=== PATIENT | female | born 1990 | race Caucasian/White ===

== ENCOUNTER 2018-11-07 15:42 | Emergency (ER) | payer MEDICAID ==
[~2018-11-07] VITALS: Ht 165.1 cm; Wt 72.7 kg
[2018-11-07 16:02] VITALS: Ht 165.1 cm; Wt 72.7 kg
[2018-11-07] MEDS ORDERED: AMOXICILLIN500 M1 PO (19:48)
[2018-11-07 20:33] VITALS: BP 136/88
== END 2018-11-07 20:33 | disposition home or self-care (01) ==
LOC: D.ER 15:42
DX: J02.9 Acute pharyngitis, unspecified (principal)

== ENCOUNTER 2019-03-28 06:50 | Day surgery (SDC) | payer MEDICAID ==
[2019-03-26 15:41] LABS: BASOPHILS 0.2 % (0-2); EOSINOPHILS 1.6 % (0-7); HEMATOCRIT 39.6 % (36.0-48.0); HEMOGLOBIN 13.4 g/dL (12-16); IMMATURE GRANULOCYTES 0.1 % (0-5); LYMPHOCYTES 28.7 % (15-50); MCH 31.7 pg (26.0-34.0); MCHC 33.8 g/dL (31.0-37.0); MCV 93.6 fL (80.0-100.0); MEAN PLATELET VOLUME 9.4 fL (7.4-10.4); MONOCYTES 10.4 % (2-11); PLATELET COUNT 281 10x3/uL (130-400); RBC 4.23 10x6/uL (4.00-5.40); RDW 11.9 % (11.5-14.5); WBC 8.4 10x3/uL (4.8-10.8)
[~2019-03-28] VITALS: Ht 165.1 cm; Wt 83.0 kg
--- NOTE | ~2019-03-28 | OP ---
PATIENT NAME: SAWYER CALDERON MEDICAL RECORD: [id number] :88 LOCATION:D.OPS ADMISSION DATE: SURGEON: GARRISON TOMPKINS DO DATE OF OPERATION: 03/28/2019 PREOPERATIVE DIAGNOSIS: Redundant labial tissue. POSTOPERATIVE DIAGNOSIS: Redundant labial tissue. PRIMARY SURGEON: Garrison Tompkins DO MANAGER DIVISION SURGEON: Dr. Heart ANESTHESIA: AYDEN Combs CRNA FINDINGS: Redundant labia minora tissue bilaterally, otherwise normal external genitalia. SPECIMENS: Bilateral labial tissue. ESTIMATED BLOOD LOSS: 30 cc. IV FLUIDS: 1250 cc. URINE OUTPUT: 300 cc clear urine. COMPLICATIONS: None. CONDITION: Stable. PROCEDURE: The risks, benefits, alternatives and indications of the procedure were discussed with the patient. She voiced understanding of the procedure and signed the consent. She was taken to the OR where general anesthesia was administered and found to be adequate. She was placed in the dorsal lithotomy position. She was prepped and draped in the normal sterile fashion. The right labial tissue was grasped with 2 Babcocks and the redundant labial tissue was noted. A marking pen was used to delineate the redundant tissue to be removed. A scalpel was then used to remove the redundant tissue and 4-0 Rapide Vicryl suture was used to suture the labia with interrupted stitches and good hemostasis. The left labia was then grasped with 2 Babcocks and a marking pen was used to delineate the tissue that was to be removed. A scalpel was then used to remove that tissue and again 4-0 Rapide Vicryl was used to close the defect in interrupted stitches with good hemostasis. The area was cleaned and estrogen cream was applied. All hemostasis was noted to be adequate. All lap sponge, instrument, and needle counts were correct times 2. The patient tolerated the procedure well. She was awakened and taken to the recovery room in stable condition. TRANSINT:[id number] Voice Confirmation ID: [id number] DOCUMENT ID: [id number] OPERATIVE REPORT [id number] SAWYER CALDERON GARRISON TOMPKINS DO CC: [id number] DICTATION DATE: 03/29/19 170 FORMULA CHECKER: 03/29/19 2309 [facility] 03/28/19 [place] [address]
[~2019-03-28 06:50] MED LIST: AMOXICILLIN500 M1 PO
[2019-03-28 06:58] VITALS: BP 136/87; Ht 165.1 cm; Wt 83.0 kg
[2019-03-28 07:12] LABS: HCG URINE NEGATIVE (NEGATIVE)
--- NOTE | 2019-03-28 12:40 | NUR ---
1240-ESCOERTED VIA WHEELCHAIR TO PERSONAL CAR, LEFT WITH WITH FAMILY MEMBER DRIVING.
== END 2019-03-28 12:40 | disposition home or self-care (01) ==
LOC: D.OPS 06:50 → D.PAN 07:30 → D.OPS 07:30 → D.PAN 07:50 → D.OPS 09:00
PROVIDERS: ATTEND Student in an Organized Health Care Education/Training Program
DX: N90.69 Other specified hypertrophy of vulva (principal); Z01.818 Encounter for other preprocedural examination; R87.619 Unspecified abnormal cytological findings in specimens from cervix uteri